=== PATIENT | male | born 1980 | race Caucasian/White ===

== ENCOUNTER 2020-01-25 06:08 | Day surgery (SDC) | payer OTHER ==
[~2020-01-25] VITALS: Ht 188 cm; Wt 98.6 kg
--- NOTE | 2020-01-25 09:30 | NUR ---
01/25/20 0930 CHUCHO SCHRADER PATIENT BECAME LIGHTHEADED UPON LEAVING BED. WAS SEATED IN RECLINER. THIS RN NOTICED DECREASE IN COLOR IN PATIENTS FACE AND BODY. BP LOW (88/50), PATIENT RECLINED IN RECLINER. BP CONT TO MONITOR , NOW UP TO 103/59.
== END 2020-01-25 10:30 | disposition home or self-care (01) ==
LOC: ORSCSDS 06:08
PROVIDERS: Orthopaedic Surgery
PROC: 0PBP0ZZ Excision of Right Metacarpal, Open Approach (ICD-10-PCS; principal; 2020-01-25 07:30)
PROC: 0PSP04Z Reposition Right Metacarpal with Internal Fixation Device, Open Approach (ICD-10-PCS; principal; 2020-01-25 07:30)
DX: S62.324A Displaced fracture of shaft of fourth metacarpal bone, right hand, initial encounter for closed fracture (principal); F17.220 Nicotine dependence, chewing tobacco, uncomplicated
CPT/HCPCS: C1713; J0690; J1100; J2250; J2405; J2704; J3010; J7120